=== PATIENT | male | born 1975 | race Caucasian/White ===

== ENCOUNTER 2023-04-07 07:17 | Emergency (ER) | payer OTHER, SELFPAY ==
[2023-04-07 07:42] VITALS: BP 138/108; PULSE 87; RESP 16; TEMP 36.5; O2SAT 100
--- NOTE | 2023-04-07 09:00 | ED.SKABFB ---
HPI - Skin/Abscess/Foreign Bdy General Chief complaint: Skin/Abscess/Foreign Body Stated complaint: rash Time Seen by Provider: 04/07/23 08:03 History of Present Illness HPI narrative: Patient had been seen here a couple days ago with diffuse urticaria, and had been started on steroids. He was worried because earlier today he had noticed that the rash seemed to have come back, by the time he showed up here, it has gotten better again. He tried taking some Candida earlier which helped as well as Benadryl, although the Benadryl makes him sleepy. Denies any swelling to his lips or tongue, difficulty breathing, he does not think he had taken any new medications or been exposed to anything new Related Data Allergies Allergy/AdvReac Type Severity Reaction Status Date / Time No Known Allergies Allergy Verified 04/07/23 07:44 Review of Systems Review of Systems: CONST: No fever. HEENT: No swelling of lips or tongue C/V: No chest pain RESP: No cough GI: No abdominal pain, nausea or vomiting : No dysuria. M/S: No joint pain. SKIN: Itchy rash all over arms, back, trunk NEURO: [No headache or focal numbness or weakness] PSYCH: [No depression] Exam Narrative: EXAMINATION OF ORGAN SYSTEMS/BODY AREAS: Constitutional: Vital signs per nursing GENERAL:[No acute distress, non-toxic appearing.] HEAD: Normal with no signs of head trauma. EYES: EOMI, conjunctiva normal ENT: No swelling of lips or tongue, normal voice LUNGS: Nonlabored breathing. HEART: [Regular rate and rhythm] ABD: [Soft], [nontender to palpation] EXT: Normal range of motion SKIN: Urticaria over trunk NEURO: [Alert and oriented x 3. No gross focal sensory or strength deficits.] PSYCH: Normal affect Course Vital Signs Vital signs: Vital Signs Temperature 97.7 F 04/07/23 07:42 Pulse Rate 87 04/07/23 07:42 Respiratory Rate 16 04/07/23 07:42 Blood Pressure 138/108 H 04/07/23 07:42 Pulse Oximetry 100 04/07/23 07:42 Oxygen Delivery Room Air 04/07/23 07:42 Temperature 97.7 F 04/07/23 07:42 Pulse Rate 87 04/07/23 07:42 Respiratory Rate 16 04/07/23 09:06 Blood Pressure 138/108 H 04/07/23 07:42 Pulse Oximetry 100 04/07/23 07:42 Oxygen Delivery Room Air 04/07/23 07:42 MDM - Skin/Abscess/Foreign Bdy MDM Narrative Medical decision making narrative: 48-year-old male presenting with urticaria, he was seen here 2 days ago and started on steroid taper, he is back because he was concerned that the urticaria have returned, however it has gone away again. He has no systemic symptoms, no GI or respiratory symptoms or airway compromise, he is already on multiple medications, and has Candida at home. I have recommended that he start taking the Candida daily as well as Pepcid, and only use the Benadryl for as needed basis and he is agreeable to this. He already has follow-up appointment with his doctor in a few days. He is given return precautions. Discharge Plan Discharge Clinical Impression: Urticaria Patient Disposition: Home, Self-Care Condition: Improved Instructions: Antibiotic Form, Urticaria (ED) Additional Instructions: Please follow up with your doctor; take candida and pepcid daily and continue with the steroids but return to the ER if you notice any worsening reaction, especially if you have any swelling of your lips/tongue or difficulty breathing. Follow-up/Referrals: Katy Stanford DO [Primary Care Provider] - 2 Days
[2023-04-07 09:06] VITALS: RESP 16
== END 2023-04-07 09:06 | disposition home or self-care (01) ==
PROVIDERS: Emergency Provider Emergency Medicine; PCP Family Medicine
DX: L50.9 Urticaria, unspecified (principal)
CPT/HCPCS: 99281

== ENCOUNTER 2023-04-13 15:23 | Outpatient (CLI) | payer OTHER, SELFPAY ==
[2023-04-13 18:08] LABS: Hematocrit 44.7 % (42.0-52.0); Mean Corpuscular HGB Conc 33.6 g/dl (32-36); Mean Corpuscular Hemoglobin 31.6 pg (26-34); Mean Corpuscular Volume 94.1 fl (80-100); Mean Platelet Volume 10.1 fl (7.4-10.4); Platelet Count Result 263 k/mm3 (150-375); Red Blood Count 4.75 M/mm3 (4.6-6.20); Red Cell Distribution Width 12.3 % (11.5-14.5); White Blood Count 14.7 K/mm3 (4.5-10.0)
[2023-04-13 18:35] LABS: Alanine Aminotransferase 35 U/L (6-50); Albumin Level 4.3 g/dL (3.5-5.1); Alkaline Phosphatase 87 U/L (38-126); Anion Gap 9 mmol/L (8-16); Aspartate Amino Transferase 37 U/L (17-59); Blood Urea Nitrogen 25 mg/dL (9-20); Calcium 9.2 mg/dL (8.4-10.2); Carbon Dioxide 26 mmol/L (22-30); Chloride 103 mmol/L (98-107); Cholesterol 201 mg/dL (0-200); Estimated Glomerular Filt Rate > 60; Glucose 91 mg/dL (65-110); HDL Direct 60 mg/dL; Potassium 3.7 mmol/L (3.4-5.0); Sodium 138 mmol/L (137-145); Triglycerides 119 mg/dL (<150)
[2023-04-13 18:46] LABS: LDL Cholesterol Direct 90 mg/dL
[2023-04-13 18:58] LABS: Prostate Specific Antigen 0.8 ng/mL (< OR = 4.0)
== END 2023-04-13 15:24 | disposition home or self-care (01) ==
LOC: ANHGOSHLAB 15:25
PROVIDERS: PCP Family Medicine; Visit Provider Family Medicine
DX: E66.3 Overweight (principal); Z12.5 Encounter for screening for malignant neoplasm of prostate; Z79.899 Other long term (current) drug therapy; Z76.89 Persons encountering health services in other specified circumstances; Z13.220 Encounter for screening for lipoid disorders; Z13.29 Encounter for screening for other suspected endocrine disorder
CPT/HCPCS: 36415; 80053; 80061; 84153; 84443; 85027; G0103

== ENCOUNTER 2023-07-09 14:07 | Outpatient (CLI) | payer OTHER, SELFPAY | END 2023-07-09 14:08 | disposition home or self-care (01) | LOC: ANHAUDIO 14:08 | PROVIDERS: PCP Family Medicine; Visit Provider Otolaryngology | DX: H90.3 Sensorineural hearing loss, bilateral (principal); H93.13 Tinnitus, bilateral | CPT/HCPCS: 92557; 92567 ==

== ENCOUNTER 2023-11-09 04:40 | Day surgery (SDC) | payer OTHER, SELFPAY ==
[2023-10-16 14:47] VITALS: BMI 27.3
--- NOTE | 2023-11-07 15:33 | SUR.PREOP ---
Colonoscopy time and date confirmed with pt.
[2023-11-09 08:38] VITALS: BP 129/81; PULSE 79; RESP 20; TEMP 36.4; O2SAT 100
[2023-11-09] MEDS: LACTATED RINGERS 1,000 ML 150 ML IV CONT (08:48)
--- NOTE | 2023-11-09 08:54 | PM.HPGS ---
History of Present Illness History of Present Illness Consent: Risks, benefits, and alternatives have been discussed and questions answered. Patient agrees to proceed with procedure. Chief complaint: neoplasm screening Narrative: Shawn Foley is a 48 year old male here for first screening colonoscopy Review of Systems Constitutional: Constitutional: Denies headache(s) and Denies weakness Eyes: Eyes: Denies blurry vision ENT: Reports Normal hearing present, Denies headache(s) and Denies neck pain Cardiovascular: Cardiovascular: Denies chest pain and Denies dyspnea Respiratory: Respiratory: Denies dyspnea Gastrointestinal: Gastrointestinal: Reports no additional gastrointestinal complaints Genitourinary: Genitourinary: Denies dysuria Musculoskeletal: Musculoskeletal: Denies neck pain Integumentary/Breasts: Skin/Breast: Denies dry skin Neurologic: Reports Normal hearing present, Denies headache(s) and Denies weakness Psychiatric: Psychiatric: Denies anxiety Endocrine: Endocrine: Denies change in body appearance Hematologic/Lymphatic: Hematologic/Lymphatic: Denies easy bleeding Allergic/Immunologic: Allergic/Immunologic: Denies urticaria [facility] Social History Social History Smoking status: Never smoker Alcohol intake: current Drinks per week: 2 Alcohol use details: Beer Substance use: never Lack of Transportation: YES Lack of Food: Never True Current Housing: I Have Housing Concerned About Future Housing: No Difficulty Paying Gas/Electric Bills: No Difficulty Paying for Meds: No Currently Unemployed: YES Education: High School Diploma/GED Difficulty w/ Childcare or Family Care: No Living arrangements: alone Occupation/Education: occupation Spiritual care concerns: No Meds Home Medications and Allergies Home Medications Medication Instructions Recorded Confirmed Type No Home Medications 04/12/23 10/16/23 History Allergies Allergy/AdvReac Type Severity Reaction Status Date / Time No Known Allergies Allergy Verified 11/09/23 08:37 Vital Signs Vital Signs - 24 hr 11/09/23 08:38 Temperature 97.5 F L Pulse Rate 79 Respiratory Rate 20 Blood Pressure 129/81 Pulse Oximetry 100 Oxygen Delivery Room Air Exam Const: General: comfortable and no acute distress HENMT: Face/Nose/Sinus: Normal nares present Eyes: General: appearance normal, both eyes and all related structures Neck: Neck: no JVD Resp: Auscultation: clear to auscultation bilaterally Cardio: Rate: regular rate Rhythm: regular rhythm GI: Inspection: non-distended GI Palp: Yes Soft to palpation Skin: General skin exam: normal color Neuro: General: gait normal Speech: normal speech Extrem: General: normal to inspection Psych: Mental Status: mental status grossly normal Assessment and Plan Assessment and plan (1) Screening for colon cancer: Code(s): Z12.11 - Encounter for screening for malignant neoplasm of colon Status: Acute Assessment and Plan: colonoscopy
--- NOTE | 2023-11-09 08:59 | WPDANESEPPF ---
Anes - Initial Pre Proc Eval Procedure: Operation Date: 11/09/23 10:00 Proposed Procedures p Screening Colonoscopy - Kyree Covarrubias MD Date/Time: 11/09/23 08:59 Surgeon: Kyree Covarrubias MD Pre Op Diagnosis: neoplasm screening Patient Data Age: 48 Gender: M Height: 1.85 m Weight: 94.5 kg Last Vital Signs Temp 36.4 C L 11/09/23 08:38 Pulse 79 11/09/23 08:38 Resp 20 11/09/23 08:38 BP 129/81 11/09/23 08:38 Pulse Ox 100 11/09/23 08:38 O2 Del Method Room Air 11/09/23 08:38 Allergies Allergy/AdvReac Type Severity Reaction Status Date / Time No Known Allergies Allergy Verified 11/09/23 08:37 Home Medications Medication Instructions Recorded Confirmed Type No Home Medications 04/12/23 10/16/23 History Patient hx anesthesia problems: none Family hx anesthesia problems: none Results Review: All pre-operative results and documents have been reviewed as part of the pre-operative evaluation. [facility] Past Medical History Medical History (Updated 11/09/23 @ 08:59 by Benny Dasilva MD) Overweight Social History Social History Smoking status: Never smoker Alcohol intake: current Drinks per week: 2 Alcohol use details: Beer Substance use: never Lack of Transportation: YES Lack of Food: Never True Current Housing: I Have Housing Concerned About Future Housing: No Difficulty Paying Gas/Electric Bills: No Difficulty Paying for Meds: No Currently Unemployed: YES Education: High School Diploma/GED Difficulty w/ Childcare or Family Care: No Living arrangements: alone Occupation/Education: occupation Spiritual care concerns: No Anes - Eval Final PreProcedure Day of Procedure 11/09/23 08:59 Patient weight: overweight Heart: regular rate and rhythm Lungs: clear to auscultation Airway: Mallampati scale class II Neurological: alert and oriented Last oral intake: >/= 8 hours ASA classification: II Emergent: no Anesthetic plan: proceed Anesthesia type and monitoring: general GIVS and standard monitoring Results Review: All pre-operative results and documents have been reviewed as part of the pre-operative evaluation. Informed Consent: The patient's anesthetic plan and its attendant risks and benefits were discussed with the patient/family/POA. Questions were solicited and answers provided to the satisfaction of the patient/family/POA.
[2023-11-09 09:22] VITALS: BP 109/78; PULSE 84; RESP 18; O2SAT 98
[2023-11-09 09:32] VITALS: BP 134/89; PULSE 82; RESP 15; O2SAT 98
[2023-11-09 09:42] VITALS: BP 130/98; PULSE 71; RESP 13; O2SAT 100
== END 2023-11-09 09:49 | disposition home or self-care (01) ==
PROVIDERS: PCP Family Medicine; Visit Provider Internal Medicine Gastroenterology
PROC: 0DJD8ZZ Inspection of Lower Intestinal Tract, Via Natural or Artificial Opening Endoscopic (ICD-10-PCS; CPT 45378; principal; 2023-11-09 10:00)
DX: Z12.11 Encounter for screening for malignant neoplasm of colon (principal); K63.5 Polyp of colon; K64.8 Other hemorrhoids
CPT/HCPCS: 45385; 88305; J2704; J7120

== ENCOUNTER 2024-05-07 14:05 | Outpatient (CLI) | payer OTHER, SELFPAY ==
[2024-05-07 15:43] LABS: Hemoglobin 14.9 g/dL (14.0-18.0); Mean Corpuscular HGB Conc 33.9 g/dl (32-36); Mean Corpuscular Hemoglobin 31.4 pg (26-34); Mean Corpuscular Volume 92.6 fl (80-100); Mean Platelet Volume 10.6 fl (7.4-10.4); Platelet Count Result 229 k/mm3 (150-375); Red Blood Count 4.75 M/mm3 (4.6-6.20); Red Cell Distribution Width 12.1 % (11.5-14.5); White Blood Count 8.9 K/mm3 (4.5-10.0)
[2024-05-07 18:17] LABS: Alanine Aminotransferase 29 U/L (6-50); Albumin Level 4.3 g/dL (3.5-5.1); Alkaline Phosphatase 80 U/L (38-126); Anion Gap 9 mmol/L (4-12); Aspartate Amino Transferase 56 U/L (17-59); Blood Urea Nitrogen 23 mg/dL (9-20); Calcium 9.1 mg/dL (8.4-10.2); Carbon Dioxide 26 mmol/L (22-30); Chloride 102 mmol/L (98-107); Cholesterol 174 mg/dL (0-200); Estimated Glomerular Filt Rate > 60; Glucose 83 mg/dL (65-110); HDL Direct 50 mg/dL; Potassium 4.1 mmol/L (3.4-5.0); Sodium 137 mmol/L (137-145); Triglycerides 93 mg/dL (<150)
[2024-05-07 18:28] LABS: LDL Cholesterol Direct 84 mg/dL
[2024-05-07 18:46] LABS: Prostate Specific Antigen 0.9 ng/mL (< OR = 4.0)
== END 2024-05-07 14:06 | disposition home or self-care (01) ==
LOC: ANHGOSHLAB 14:06
PROVIDERS: PCP Family Medicine; Visit Provider Nurse Practitioner
DX: Z00.00 Encounter for general adult medical examination without abnormal findings (principal); Z12.5 Encounter for screening for malignant neoplasm of prostate
CPT/HCPCS: 36415; 80053; 80061; 84153; 84443; 85027; G0103

== ENCOUNTER 2025-06-01 13:57 | Outpatient (CLI) | payer OTHER, SELFPAY ==
[2025-06-01 19:07] LABS: Alanine Aminotransferase 26 U/L (6-50); Albumin Level 4.0 g/dL (3.5-5.1); Alkaline Phosphatase 91 U/L (38-126); Anion Gap 5 mmol/L (4-12); Aspartate Amino Transferase 37 U/L (17-59); Bilirubin,Total 0.9 mg/dL (0.2-1.3); Blood Urea Nitrogen 17 mg/dL (9-20); Calcium 9.0 mg/dL (8.4-10.2); Carbon Dioxide 29 mmol/L (22-30); Chloride 103 mmol/L (98-107); Cholesterol 185 mg/dL (0-200); Estimated Glomerular Filt Rate > 60; Glucose 85 mg/dL (65-110); Potassium 4.2 mmol/L (3.4-5.0); Sodium 137 mmol/L (137-145); Total Protein 7.5 g/dL (6.3-8.2); Triglycerides 152 mg/dL (<150)
[2025-06-01 19:33] LABS: Hematocrit 44.8 % (42.0-52.0); Hemoglobin 14.7 g/dL (14.0-18.0); Mean Corpuscular HGB Conc 32.8 g/dl (32-36); Mean Corpuscular Hemoglobin 30.6 pg (26-34); Mean Corpuscular Volume 93.3 fl (80-100); Platelet Count Result 226 k/mm3 (150-375); Red Blood Count 4.80 M/mm3 (4.6-6.20); White Blood Count 8.4 K/mm3 (4.5-10.0)
[2025-06-01 19:40] LABS: Prostate Specific Antigen 0.9 ng/mL (< OR = 4.0); Thyroid Stimulating Hormone 0.995 uIU/mL (0.465-4.680)
[2025-06-01 19:51] LABS: HDL Direct 42 mg/dL
== END 2025-06-01 13:58 | disposition home or self-care (01) ==
LOC: ANHGOSHLAB 13:58
PROVIDERS: PCP Family Medicine; Visit Provider Family Medicine
DX: Z00.00 Encounter for general adult medical examination without abnormal findings (principal); Z12.5 Encounter for screening for malignant neoplasm of prostate; E66.3 Overweight; E78.5 Hyperlipidemia, unspecified
CPT/HCPCS: 36415; 80053; 80061; 84153; 84443; 85027; G0103